=== PATIENT | male | born 1995 | race African-American/Black ===

== ENCOUNTER 2021-09-08 10:16 | Emergency (ER) | payer OTHER ==
[~2021-09-08] VITALS: Ht 175.3 cm; Wt 64.0 kg
[2021-09-08] MEDS ORDERED: ALBUTEROL (0.083%) 2.5MG/3ML NEB HHN STA (10:36)
[2021-09-08] MEDS ORDERED: METHYLPREDNISOLONE SOD SUCC 125 MG/2 ML VIAL IM STA (10:36)
[2021-09-08] MEDS ORDERED: IPRATROPIUM BROMIDE (0.02%) 0.5MG/2.5ML NEB HHN STA (10:36)
[2021-09-08] MEDS ORDERED: METHYLPREDNISOLONE SOD SUCC 125 MG/2 ML VIAL IM NR (11:45)
[2021-09-08] MEDS ORDERED: ALBU18HF2 IH (11:59)
[2021-09-08] MEDS ORDERED: P20 MT (11:59)
[2021-09-08 12:07] VITALS: BP 127/101
== END 2021-09-09 06:19 | disposition home or self-care (01) ==
LOC: ER 13:14
DX: J45.901 Unspecified asthma with (acute) exacerbation (principal); Z88.0 Allergy status to penicillin
CPT/HCPCS: 71045; 94640; 96372; 99283; J2930; Z7610

== ENCOUNTER 2021-10-26 05:29 | Emergency (ER) | payer OTHER ==
[~2021-10-26] VITALS: Ht 175.3 cm; Wt 64.0 kg
[~2021-10-26 05:29] MED LIST: ALBU18HF2 IH; P20 MT
[2021-10-26 05:33] VITALS: BP 129/83
[2021-10-26] MEDS ORDERED: ALBUTEROL (0.083%) 2.5MG/3ML NEB HHN ONE (06:00)
[2021-10-26] MEDS ORDERED: PREDNISONE 20MG TABLET PO ONE (06:00)
[2021-10-26] MEDS ORDERED: P50 MT (06:24)
[2021-10-26] MEDS ORDERED: ALBU6.7H15 INH (06:24)
== END 2021-10-26 09:25 | disposition home or self-care (01) ==
LOC: ER 05:29
DX: J45.901 Unspecified asthma with (acute) exacerbation (principal); Z88.0 Allergy status to penicillin; Z98.890 Other specified postprocedural states
CPT/HCPCS: 94640; 99283; Z7610